=== PATIENT | female | born 1955 | race Caucasian/White ===

== ENCOUNTER 2017-01-01 09:27 | Inpatient (IN) | payer OTHER ==
[2017-01-01 10:03] VITALS: BMI 33.5
--- NOTE | 2017-01-01 11:48 | HP ---
CIWA Score - CIWA Score Nausea/Vomitin Muscle Tremors: 2 Anxiety: 4-Mod. Anxious/Guarded Agitation: 3 Paroxysmal Sweats: 3 Orientation: 0-Oriented Tacttile Disturbances: 1-Very Mild Itch/Numbness Auditory Disturbances: 2-Mild Harshness/Frighten Visual Disturbances: 2-Mild Sensitivity Headache: 0-None Present CIWA-Ar Total Score: 20 Admission ROS BHS - HPI Chief Complaint: "I want to get sober forever." Pt. is here to Detox from Alcohol. Allergies/Adverse Reactions: Allergies Allergy/AdvReac Type Severity Reaction Status Date / Time No Known Allergies Allergy Verified 01/01/17 10:28 History of Present Illness: Pt. is here to Detox from Alcohol. This is pt.'s first Detox admission at [facility]. Pt. had previous Detox admission at [facility] in 11/2016. Longest period of sobriety in past: 28 years (age 31 - age 59). Exam Limitations: No Limitations - Ebola screening Have you traveled outside of the country in the last 21 days: No Have you had contact with anyone from an Ebola affected area: No Have you been sick,other than usual withdrawal symptoms: No Do you have a fever: No - Review of Systems Constitutional: Chills, Diaphoresis, Fever, Malaise, Night Sweats, Changes in sleep EENT: reports: Blurred Vision, Tinnitus (Occasional.), Nose Congestion, Sinus Pressure Respiratory: reports: Cough, Shortness of Breath (Only when feeling very anxious.) Cardiac: reports: Palpitations GI: reports: Constipated, Nausea, Indigestion (Heartburn.) : reports: No Symptoms Reported Musculoskeletal: reports: Back Pain, Joint Pain, Neck Pain, Joint Stiffness Integumentary: reports: Sweating Neuro: reports: Headache, Numbness (Fingertips of Bilateral Hands.), Seizure (1 - approx. years ago (due to Valium withdrawal).), Tingling (Fingertips of Bilateral Hands.), Tremors Endocrine: reports: No Symptoms Reported Hematology: reports: Anemia (Uncertain about type. No meds.), Easy Bruising Psychiatric: reports: Judgement Intact, Mood/Affect Appropiate, Orientated x3, Anxious, Depressed (Anxiety.) Other Systems: Reviewed and Negative Patient History - Patient Medical History Hx Anemia: Yes (Uncertain about type. No meds.) Hx Asthma: No Hx Chronic Obstructive Pulmonary Disease (COPD): No Hx Cancer: No Hx Cardiac Disorders: No Hx Congestive Heart Failure: No Hx Hypertension: No Hx Hypercholesterolemia: No Hx Pacemaker: No HX Cerebrovascular Accident: No Hx Seizures: Yes (1 - Approx. 6 yrs. ago (due to withdrawal from Valium).) Hx Dementia: No Hx Diabetes: No Hx Gastrointestinal Disorders: Yes (Duodenal Ulcer as a teenager - Resolved.) Hx Liver Disease: Yes (Cirrhosis.) Hx Genitourinary Disorders: No Hx Sexually Transmitted Disorders: No Hx Renal Disease (ESRD): No Hx Thyroid Disease: Yes (Hypothyroidism.) Hx Human Immunodeficiency Virus (HIV): No (NEGATIVE HISTORY.) Hx Hepatitis C: No (UNCERTAIN IF SHE HAS IT; DECLINES TESTING THIS VIST.) Hx Depression: Yes (and Anxiety. On meds.) Hx Suicide Attempt: No (PATIENT DENIES CURRENT SI / HI.) Hx Bipolar Disorder: No Hx Schizophrenia: No Other Medical History: Gallstones - diagnosed in 11/2016. - Patient Surgical History Past Surgical History: No Hx Neurologic Surgery: No Hx Cataract Extraction: No Hx Cardiac Surgery: No Hx Lung Surgery: No Hx Breast Surgery: No Hx Breast Biopsy: No Hx Abdominal Surgery: No Hx Appendectomy: No Hx Cholecystectomy: No Hx Genitourinary Surgery: No Hx Section: No Hx Orthopedic Surgery: No Hx Hysterectomy: No Anesthesia Reaction: No - PPD History Previous Implant?: No Documented Results: Negative w/o proof Implanted On Prior R Admission?: No PPD to be Administered?: Yes - Reproductive History Patient is a Female of Child Bearing Age (11 -55 yrs old): No LMP comment: Stopped in late 40's. Patient : No - Smoking Cessation Smoking history: Current some day smoker Have you smoked in the past 12 months: Yes Aproximately how many cigarettes per day: 2 Cigars Per Day: 0 Hx Chewing Tobacco Use: No Initiated information on smoking cessation: Yes 'Breaking Loose' booklet given: 01/01/17 (GIVEN ON UNIT.) - Substance & Tx. History Hx Alcohol Use: Yes Hx Substance Use: Yes Substance Use Type: Alcohol Hx Substance Use Treatment: Yes ([address] [facility].) - Substances Abused Alcohol Route: Oral Frequency: Daily Amount used: vodka(1pint) Age of first use: 15 Date of Last Use: 01/01/17 Family Disease History - Family Disease History Family Disease History: Diabetes: Father, Mother, Brother Admission Physical Exam [facility] - Vital Signs Vital Signs: Vital Signs - 24 hr 01/01/17 09:59 Temperature 97.2 F L Pulse Rate 97 H Respiratory 20 Rate Blood Pressure 135/85 - Physical General Appearance: Yes: Nourished, Appropriately Dressed, Mild Distress, Tremorous, Irritable, Sweating, Anxious HEENTM: Yes: Hearing grossly Normal, Normocephalic, Normal Voice, JAKUB, Pharynx Normal Respiratory: Yes: Chest Non-Tender, Lungs Clear, No Respiratory Distress Neck: Yes: No masses,lesions,Nodules, Trachea in good position, Thyroid tenderness Breast: Yes: Breast Exam Deferred Cardiology: Yes: Regular Rhythm, Regular Rate, S1, S2 Abdominal: Yes: Normal Bowel Sounds, Non Tender, Soft, Protuberent Genitourinary: Yes: Within Normal Limits Back: Yes: Decreased Range of Motion Musculoskeletal: Yes: Gait Steady, Back pain, Joint Stiffness Extremities: Yes: Tremors Neurological: Yes: Fully Oriented, Alert, Normal Mood/Affect, Normal Response Integumentary: Yes: Normal Color, Warm Lymphatic: Yes: Within Normal Limits - Diagnostic (1) Alcohol dependence with uncomplicated withdrawal Current Visit: Yes Status: Acute (2) Nicotine dependence Current Visit: Yes Status: Chronic Qualifiers: Nicotine product type: cigarettes Substance use status: uncomplicated Qualified Code(s): F17.210 - Nicotine dependence, cigarettes, uncomplicated (3) Hypothyroidism Current Visit: Yes Status: Chronic Qualifiers: Hypothyroidism type: unspecified Qualified Code(s): E03.9 - Hypothyroidism, unspecified (4) Liver cirrhosis Current Visit: Yes Status: Chronic Qualifiers: Hepatic cirrhosis type: unspecified hepatic cirrhosis Ascites presence : without ascites Qualified Code(s): K74.60 - Unspecified cirrhosis of liver (5) History of seizure Current Visit: Yes Status: Chronic (6) Gallstones Current Visit: Yes Status: Chronic (7) History of depression Current Visit: Yes Status: Chronic (8) Anxiety Current Visit: Yes Status: Chronic Cleared for Admission [facility] - Detox or Rehab [facility] Level of Care: Medically Managed Detox Regimen/Protocol: Librium [facility] Breath Alcohol Content Breath Alcohol Content: 0 Urine Pregancy Test - Result Urine Test Results: Negative- NO Line Present Urine Drug Screen - Results Drug Screen Negative: No Urine Drug Screen Results: BZO-Benzodiazepines
[2017-01-01] MEDS ORDERED: chlordiazePOXIDE HCL 25 MG CAPSULE PO ONE (13:00)
[2017-01-01] MEDS ORDERED: MAG HYDROX/AL HYDROX/SIMETH 30 ML UNIT-DOSE CUP PO PRN (13:00)
[2017-01-01] MEDS ORDERED: LOPERAMIDE HCL 2 MG CAPSULE PO PRN (13:00)
[2017-01-01] MEDS ORDERED: guaiFENesin/D-METHORPHAN HB 10 ML UNIT-DOSE CUPS PO PRN (13:00)
[2017-01-01] MEDS ORDERED: MAGNESIUM CITRATE 300 ML BOTTLE PO PRN (13:00)
[2017-01-01] MEDS ORDERED: P-EPHED 60MG/TRIPROLIDI 2.5MG TABLET PO PRN (13:00)
[2017-01-01] MEDS ORDERED: MAGNESIUM HYDROX 2400MG/30ML ORAL SUSPENSION 30 ML CUP PO PRN (13:00)
[2017-01-01] MEDS ORDERED: MENTHOL/PHENOL 1 EACH UD MM PRN (13:00)
[2017-01-01] MEDS ORDERED: LEVOTHYROXINE NA 125 MCG TABLET (FP) PO SCH ×3 (13:15→14:35)
[2017-01-01] MEDS: CYCLOBENZAPRINE HCL 10 MG TABLET (FP) PO PRN ×2 (14:12→22:17)
[2017-01-01] MEDS ORDERED: LEVOTHYROXINE NA 25 MCG TABLET (FP) PO SCH (14:32)
[2017-01-01] MEDS: NICOTINE 14 MG/24 HOURS TOPICAL PATCH TD SCH (14:45)
[2017-01-01] MEDS: chlordiazePOXIDE HCL 25 MG CAPSULE PO SCH ×2 (17:31→22:17)
[2017-01-01 17:47] LABS: URINE APPEARANCE CLEAR; URINE BILIRUBIN NEGATIVE (NEGATIVE); URINE BLOOD NEGATIVE (NEGATIVE); URINE COLOR YELLOW; URINE GLUCOSE (UA) NEGATIVE (NEGATIVE); URINE KETONE NEGATIVE (NEGATIVE); URINE LEUK ESTERASE NEGATIVE (NEGATIVE); URINE NITRITE NEGATIVE (NEGATIVE); URINE PROTEIN NEGATIVE (NEGATIVE); URINE UROBILINOGEN 4.0 E.U/dl E.U./dl (0.2-1.0)
[2017-01-01] MEDS: ACETAMINOPHEN 325 MG TABLET (FP) PO PRN (20:35)
[2017-01-01] MEDS: THIAMINE HCL 100 MG TABLET (FP) PO SCH (22:16)
[2017-01-01] MEDS: diphenhydrAMINE HCL 50 MG CAPSULE PO PRN (22:17)
[2017-01-02] MEDS: diphenhydrAMINE HCL 50 MG CAPSULE PO PRN (00:56)
[2017-01-02] MEDS: ARTIFICIAL TEARS (POLYVINYL ALCOHOL 1.4%) OPTH DROPS OU PRN ×2 (05:47→22:25)
[2017-01-02] MEDS: chlordiazePOXIDE HCL 25 MG CAPSULE PO SCH ×4 (05:49→22:25)
[2017-01-02] MEDS: ACETAMINOPHEN 325 MG TABLET (FP) PO PRN ×2 (05:52→13:44)
[2017-01-02 10:06] LABS: MCHC 29.4 g/dl (32.0-36.0); MEAN CELL VOLUME 74.6 fl (80-96); MEAN PLT VOLUME 8.4 fl (7.5-11.1); PLATELET COUNT 153 K/MM3 (134-434); RDW 18.1 % (11.6-15.6)
[2017-01-02 10:15] LABS: ALBUMIN 3.1 g/dl (3.4-5.0); SGOT/AST 159 U/L (15-37)
[2017-01-02 10:23] LABS: INR 1.03 (0.82-1.09); PROTHROMBIN TIME (PATIENT) 11.3 SEC (9.98-11.88)
--- NOTE | 2017-01-02 10:30 | PN ---
S CIWA - CIWA Score Nausea/Vomitin-No Nausea/No Vomiting Muscle Tremors: 4-Moderate,w/Arms Extend Anxiety: 3 Agitation: 4-Moderately Restless Paroxysmal Sweats: 3 Orientation: 0-Oriented Tacttile Disturbances: 0-None Auditory Disturbances: 0-None Visual Disturbances: 0-None Headache: 0-None Present CIWA-Ar Total Score: 14 BHS Progress Note (SOAP) Subjective: sweats shakes interrupted sleep agitation Objective: 01/02/17 10:30 Vital Signs Temperature 97.5 F L 01/02/17 10:00 Pulse Rate 97 H 01/02/17 10:00 Respiratory Rate 20 01/02/17 10:00 Blood Pressure 135/86 01/02/17 10:00 O2 Sat by Pulse Oximetry (%) Laboratory Tests 01/01/17 01/02/17 01/02/17 17:24 07:00 07:00 WBC 7.0 RBC 3.65 Hgb 8.0 L Hct 27.2 L MCV 74.6 L MCHC 29.4 L RDW 18.1 H Plt Count 153 MPV 8.4 Sodium 138 Potassium 3.8 Chloride 100 AST 159 H Albumin 3.1 L Urine Color Yellow Urine Appearance Clear Urine pH 6.0 Ur Specific [place] 1.015 Urine Protein Negative Urine Glucose (UA) Negative Urine Ketones Negative Urine Blood Negative Urine Nitrite Negative Urine Bilirubin Negative Urine Urobilinogen 4.0 e.u/dl H Ur Leukocyte Esterase Negative rest of labs pending awake/alert ambulating no acute distress Assessment: 01/02/17 10:30 withdrawal sx Plan: continue detox increase fluids labs pending
[2017-01-02 10:31] LABS: ALK PHOS 95 U/L (45-117); ANION GAP 10 (8-16); BILIRUBIN,TOTAL 0.7 mg/dL (0.2-1.0); CALCIUM 8.3 mg/dL (8.5-10.1); CO2 28 mmol/L (21-32); CREATININE 0.7 mg/dL (0.55-1.02); GLUCOSE,RANDOM 141 mg/dL (74-106); SGPT/ALT 89 U/L (12-78); T3 UPTAKE 29.7 % (30-39); TOT PROT 7.4 g/dl (6.4-8.2)
[2017-01-02] MEDS: ESCITALOPRAM OXALATE 10 MG TABLET (FP) PO SCH (10:36)
[2017-01-02] MEDS: PRENATAL VITAMINS W/ FOLIC ACID TABLET (FP) PO SCH (10:36)
[2017-01-02] MEDS: PANTOPRAZOLE 20 MG TABLET (FP) PO SCH (10:36)
[2017-01-02] MEDS: NICOTINE 14 MG/24 HOURS TOPICAL PATCH TD SCH (10:37)
[2017-01-02] MEDS: CYCLOBENZAPRINE HCL 10 MG TABLET (FP) PO PRN ×2 (10:59→22:26)
--- NOTE | 2017-01-02 11:51 | CONSULT ---
[facility] Psychiatric Consult - Data Date of interview: 01/02/17 Admission source: [facility] Identifying data: This is 61 years old chronic alcoholic female with no psychiatrioc hoispitalization history intoxicated with: Alcohol, Nicotine Substance Abuse History: - Smoking Cessation. Smoking history: Current some day smoker. Have you smoked in the past 12 months: Yes. Aproximately how many cigarettes per day: 2. Cigars Per Day: 0. Hx Chewing Tobacco Use: No. Initiated information on smoking cessation: Yes. 'Breaking Loose' booklet given : 01/01/17 (GIVEN ON UNIT.). - Substance & Tx. History. Hx Alcohol Use: Yes. Hx Substance Use: Yes. Substance Use Type: Alcohol. Hx Substance Use Treatment : Yes (1 Previous Detox admission at [facility] - Substances Abused. Alcohol. Route: Oral. Frequency: Daily. Amount used: vodka(1pint) . Age of first use: 15. Date of Last Use: 01/01/17 Medical History: Obesity, Liver Cirrhosis, Gallstones history, Seizure history, Hypothyroiditis, Psychiatric History: Patient reports history of depression and insomnia, reports taking prior to admission: Remeron 15mg po qhs. Lexapro 10mg p[oqd. Ambien 10mg po qhs Physical/Sexual Abuse/Trauma History: Denies Additional Comment: Remeron 15mg po qhs. Lexapro 10mg p[oqd. Ambien 10mg po qhs Mental Status Exam - Mental Status Exam Alert and Oriented to: Person Cognitive Function: Fair Patient Appearance: Unkempt Mood: Anxious Affect: Flat Patient Behavior: Cooperative Speech Pattern: Delayed Voice Loudness: Mildly Soft/Quiet Thought Process: Circumstantial Thought Disorder: Being Controlled Hallucinations: Denies Suicidal Ideation: Denies Homicidal Ideation: Denies Insight/Judgement: Fair Sleep: Difficulty falling asleep Appetite: Weight gain Muscle strength/Tone: Mild Hypotonicity Gait/Station: Shuffling Additional Comments: Remeron 15mg po qhs. Lexapro 10mg p[oqd. Ambien 10mg po qhs Psychiatric Findings - Problem List ([place] 1, 2,3) (1) Alcohol dependence with uncomplicated withdrawal Current Visit: Yes Status: Acute (2) History of depression Current Visit: Yes Status: Chronic (3) History of seizure Current Visit: Yes Status: Chronic (4) Liver cirrhosis Current Visit: Yes Status: Chronic Qualifiers: Hepatic cirrhosis type: unspecified hepatic cirrhosis Ascites presence : without ascites Qualified Code(s): K74.60 - Unspecified cirrhosis of liver (5) Nicotine dependence Current Visit: Yes Status: Chronic Qualifiers: Nicotine product type: cigarettes Substance use status: uncomplicated Qualified Code(s): F17.210 - Nicotine dependence, cigarettes, uncomplicated (6) Drug-induced mood disorder Current Visit: Yes Status: Acute - Initial Treatment Plan Initial Treatment Plan: Remeron 15mg po qhs. Lexapro 10mg p[oqd. Ambien 10mg po qhs
--- NOTE | 2017-01-02 14:12 | EKG ---
Test Reason : Blood Pressure : / mmHG Vent. Rate : 091 BPM Atrial Rate : 091 BPM P-R Int : 126 ms QRS Dur : 082 ms QT Int : 390 ms P-R-T Axes : 059 055 029 degrees QTc Int : 479 ms NORMAL SINUS RHYTHM SEPTAL INFARCT , AGE UNDETERMINED ABNORMAL ECG NO PREVIOUS ECGS AVAILABLE Confirmed by JORGE ANDRE MD ([id number]) on 01/02/2017 2:12:20 PM Referred By: Confirmed By:JORGE ANDRE MD
[2017-01-02] MEDS: chlordiazePOXIDE HCL 25 MG CAPSULE PO PRN (19:36)
[2017-01-02] MEDS: THIAMINE HCL 100 MG TABLET (FP) PO SCH (22:25)
[2017-01-02] MEDS: ZOLPIDEM TARTRATE 10 MG TABLET (PARK CARE ONLY) PO PRN (22:25)
[2017-01-02] MEDS: MIRTAZAPINE 15 MG TABLET (FP) PO SCH (22:25)
[2017-01-03] MEDS: ACETAMINOPHEN 325 MG TABLET (FP) PO PRN (03:32)
[2017-01-03] MEDS: chlordiazePOXIDE HCL 25 MG CAPSULE PO SCH ×2 (05:55→10:33)
[2017-01-03] MEDS: LEVOTHYROXINE 25 MCG, LEVOTHYROXINE 100 MCG PO SCH (06:30)
[2017-01-03] MEDS: PANTOPRAZOLE 20 MG TABLET (FP) PO SCH (10:33)
[2017-01-03] MEDS: PRENATAL VITAMINS W/ FOLIC ACID TABLET (FP) PO SCH (10:33)
[2017-01-03] MEDS: ESCITALOPRAM OXALATE 10 MG TABLET (FP) PO SCH (10:33)
[2017-01-03] MEDS: NICOTINE 14 MG/24 HOURS TOPICAL PATCH TD SCH (10:34)
[2017-01-03] MEDS: CYCLOBENZAPRINE HCL 10 MG TABLET (FP) PO PRN ×2 (10:35→22:09)
--- NOTE | 2017-01-03 10:46 | PN ---
[facility] CIWA - CIWA Score Nausea/Vomitin-No Nausea/No Vomiting Muscle Tremors: 3 Anxiety: 3 Agitation: 3 Paroxysmal Sweats: 3 Orientation: 0-Oriented Tacttile Disturbances: 0-None Auditory Disturbances: 0-None Visual Disturbances: 0-None Headache: 0-None Present CIWA-Ar Total Score: 12 BHS Progress Note (SOAP) Subjective: shakes sweats interrupted sleep agitation Objective: 01/03/17 10:46 Vital Signs Temperature 97.1 F L 01/03/17 09:56 Pulse Rate 103 H 01/03/17 09:56 Respiratory Rate 20 01/03/17 09:56 Blood Pressure 130/81 01/03/17 09:56 O2 Sat by Pulse Oximetry (%) Laboratory Tests 01/01/17 01/02/17 01/02/17 17:24 07:00 07:00 WBC 7.0 RBC 3.65 Hgb 8.0 L Hct 27.2 L MCV 74.6 L MCHC 29.4 L RDW 18.1 H Plt Count 153 MPV 8.4 INR Sodium 138 Potassium 3.8 Chloride 100 Carbon Dioxide 28 Anion Gap 10 BUN 16 Creatinine 0.7 Creat Clearance w eGFR > 60 Random Glucose 141 H Calcium 8.3 L Total Bilirubin 0.7 AST 159 H ALT 89 H Alkaline Phosphatase 95 Total Protein 7.4 Albumin 3.1 L TSH 20.50 H Resin T3 Uptake 29.7 L Urine Color Yellow Urine Appearance Clear Urine pH 6.0 Ur Specific [place] 1.015 Urine Protein Negative Urine Glucose (UA) Negative Urine Ketones Negative Urine Blood Negative Urine Nitrite Negative Urine Bilirubin Negative Urine Urobilinogen 4.0 e.u/dl H Ur Leukocyte Esterase Negative RPR Titer 01/02/17 01/02/17 07:00 07:00 WBC RBC Hgb Hct MCV MCHC RDW Plt Count MPV INR 1.03 Sodium Potassium Chloride Carbon Dioxide Anion Gap BUN Creatinine Creat Clearance w eGFR Random Glucose Calcium Total Bilirubin AST ALT Alkaline Phosphatase Total Protein Albumin TSH Resin T3 Uptake Urine Color Urine Appearance Urine pH Ur Specific [place] Urine Protein Urine Glucose (UA) Urine Ketones Urine Blood Urine Nitrite Urine Bilirubin Urine Urobilinogen Ur Leukocyte Esterase RPR Titer Nonreactive awake/alert ambulating no acute distress Assessment: 01/03/17 10:47 withdrawal sx Plan: continue detox increase fluids continue synthroid repeat labs
[2017-01-03] MEDS: chlordiazePOXIDE HCL 25 MG CAPSULE PO PRN (14:19)
[2017-01-03] MEDS: IBUPROFEN 400 MG TABLET (FP) PO PRN ×2 (15:57→20:59)
[2017-01-03] MEDS: hydrOXYzine PAMOATE 50 MG CAPSULE (FP) PO PRN (15:57)
[2017-01-03] MEDS: chlordiazePOXIDE 5 MG CAPSULE PO SCH ×2 (17:08→22:10)
[2017-01-03] MEDS: ARTIFICIAL TEARS (POLYVINYL ALCOHOL 1.4%) OPTH DROPS OU PRN ×2 (21:01→22:09)
[2017-01-03] MEDS: ZOLPIDEM TARTRATE 10 MG TABLET (PARK CARE ONLY) PO PRN (22:08)
[2017-01-03] MEDS: MIRTAZAPINE 15 MG TABLET (FP) PO SCH (22:10)
[2017-01-03] MEDS: THIAMINE HCL 100 MG TABLET (FP) PO SCH (22:10)
[2017-01-04] MEDS: diphenhydrAMINE HCL 50 MG CAPSULE PO PRN (00:51)
[2017-01-04] MEDS: chlordiazePOXIDE HCL 25 MG CAPSULE PO PRN (00:51)
[2017-01-04] MEDS: chlordiazePOXIDE 5 MG CAPSULE PO SCH ×2 (05:56→10:49)
[2017-01-04] MEDS: CYCLOBENZAPRINE HCL 10 MG TABLET (FP) PO PRN ×3 (06:00→22:35)
[2017-01-04] MEDS: LEVOTHYROXINE 25 MCG, LEVOTHYROXINE 100 MCG PO SCH (06:12)
[2017-01-04 09:59] LABS: BASOPHIL 0.7 % (0-2.0); EOSINOPHIL 7.1 % (0-4.5); MCH 22.6 pg (25.7-33.7); MCHC 29.6 g/dl (32.0-36.0); MEAN CELL VOLUME 76.4 fl (80-96); MEAN PLT VOLUME 9.1 fl (7.5-11.1); NEUTROPHILS 58.3 % (42.8-82.8); RDW 18.9 % (11.6-15.6); WHITE BLOOD COUNT 6.8 K/mm3 (4.0-10.0)
[2017-01-04 10:32] LABS: ALBUMIN 2.8 g/dl (3.4-5.0); ANION GAP 9 (8-16); CO2 27 mmol/L (21-32); GLUCOSE,RANDOM 140 mg/dL (74-106)
[2017-01-04 10:43] LABS: ALK PHOS 92 U/L (45-117); BILIRUBIN,TOTAL 0.3 mg/dL (0.2-1.0); CREATININE 0.6 mg/dL (0.55-1.02); SGOT/AST 124 U/L (15-37); SGPT/ALT 90 U/L (12-78); TOT PROT 6.5 g/dl (6.4-8.2)
[2017-01-04] MEDS: PRENATAL VITAMINS W/ FOLIC ACID TABLET (FP) PO SCH (10:48)
[2017-01-04] MEDS: NICOTINE 14 MG/24 HOURS TOPICAL PATCH TD SCH (10:49)
[2017-01-04] MEDS: PANTOPRAZOLE 20 MG TABLET (FP) PO SCH (10:49)
[2017-01-04] MEDS: ESCITALOPRAM OXALATE 10 MG TABLET (FP) PO SCH (10:49)
--- NOTE | 2017-01-04 11:13 | PN ---
BHS Progress Note (SOAP) Subjective: sweats interrupted sleep body aches Objective: 01/04/17 11:16 Vital Signs Temperature 98.2 F 01/04/17 10:00 Pulse Rate 101 H 01/04/17 10:00 Respiratory Rate 16 01/04/17 10:00 Blood Pressure 132/85 01/04/17 10:00 O2 Sat by Pulse Oximetry (%) Laboratory Tests 01/01/17 01/02/17 01/02/17 17:24 07:00 07:00 WBC 7.0 RBC 3.65 Hgb 8.0 L Hct 27.2 L MCV 74.6 L MCHC 29.4 L RDW 18.1 H Plt Count 153 MPV 8.4 Neutrophils % Lymphocytes % Monocytes % Eosinophils % Basophils % INR Sodium 138 Potassium 3.8 Chloride 100 Carbon Dioxide 28 Anion Gap 10 BUN 16 Creatinine 0.7 Creat Clearance w eGFR > 60 Random Glucose 141 H Calcium 8.3 L Total Bilirubin 0.7 AST 159 H ALT 89 H Alkaline Phosphatase 95 Total Protein 7.4 Albumin 3.1 L TSH 20.50 H Resin T3 Uptake 29.7 L Urine Color Yellow Urine Appearance Clear Urine pH 6.0 Ur Specific [place] 1.015 Urine Protein Negative Urine Glucose (UA) Negative Urine Ketones Negative Urine Blood Negative Urine Nitrite Negative Urine Bilirubin Negative Urine Urobilinogen 4.0 e.u/dl H Ur Leukocyte Esterase Negative RPR Titer 01/02/17 01/02/17 01/04/17 07:00 07:00 07:00 WBC 6.8 RBC 3.22 L Hgb 7.3 L Hct 24.6 L MCV 76.4 L MCHC 29.6 L RDW 18.9 H Plt Count MPV 9.1 Neutrophils % 58.3 Lymphocytes % 23.4 Monocytes % 10.5 H Eosinophils % 7.1 H Basophils % 0.7 INR 1.03 Sodium Potassium Chloride Carbon Dioxide Anion Gap BUN Creatinine Creat Clearance w eGFR Random Glucose Calcium Total Bilirubin AST ALT Alkaline Phosphatase Total Protein Albumin TSH Resin T3 Uptake Urine Color Urine Appearance Urine pH Ur Specific [place] Urine Protein Urine Glucose (UA) Urine Ketones Urine Blood Urine Nitrite Urine Bilirubin Urine Urobilinogen Ur Leukocyte Esterase RPR Titer Nonreactive awake/alert ambulating no acute distress Assessment: 01/04/17 11:21 withdrawal sx Plan: continue detox increase fluids d/c in am
[2017-01-04 11:20] LABS: PLATELET ESTIMATE SLT DECREASED (NORMAL)
[2017-01-04] MEDS ORDERED: cloNIDine HCL 0.1 MG TABLET PO ONE (11:24)
[2017-01-04] MEDS: FERROUS SO4 325 MG TABLET (FP) PO SCH ×2 (11:42→17:31)
[2017-01-04] MEDS: hydrOXYzine PAMOATE 50 MG CAPSULE (FP) PO PRN (13:09)
[2017-01-04] MEDS: IBUPROFEN 400 MG TABLET (FP) PO PRN (17:31)
[2017-01-04] MEDS: chlordiazePOXIDE HCL 10 MG CAPSULE PO SCH ×2 (17:31→22:35)
[2017-01-04] MEDS: ARTIFICIAL TEARS (POLYVINYL ALCOHOL 1.4%) OPTH DROPS OU PRN (18:54)
[2017-01-04] MEDS: ZOLPIDEM TARTRATE 10 MG TABLET (PARK CARE ONLY) PO PRN (22:34)
[2017-01-04] MEDS: MIRTAZAPINE 15 MG TABLET (FP) PO SCH (22:35)
[2017-01-04] MEDS: THIAMINE HCL 100 MG TABLET (FP) PO SCH (22:35)
[2017-01-05] MEDS ORDERED: LEVOTHYROXINE NA 100 MCG TABLET (FP) ONE (04:56)
[2017-01-05] MEDS ORDERED: LEVOTHYROXINE NA 25 MCG TABLET (FP) ONE (04:56)
[2017-01-05] MEDS: chlordiazePOXIDE HCL 10 MG CAPSULE PO SCH ×2 (05:51→10:57)
[2017-01-05] MEDS: CYCLOBENZAPRINE HCL 10 MG TABLET (FP) PO PRN ×2 (05:53→13:59)
[2017-01-05] MEDS: FERROUS SO4 325 MG TABLET (FP) PO SCH ×2 (07:35→10:59)
[2017-01-05] MEDS: LEVOTHYROXINE 25 MCG, LEVOTHYROXINE 100 MCG PO SCH (07:35)
[2017-01-05] MEDS: IBUPROFEN 400 MG TABLET (FP) PO PRN (07:36)
--- NOTE | 2017-01-05 08:28 | DS ---
[facility] Detox Discharge Summary Admission Date: 01/01/17 Discharge Date: 01/05/17 - History Present History: Alcohol Dependence - Physical Exam Results Vital Signs: Vital Signs Temperature 96 F L 01/05/17 06:29 Pulse Rate 94 H 01/05/17 06:29 Respiratory Rate 18 01/05/17 06:29 Blood Pressure 128/86 01/05/17 06:29 O2 Sat by Pulse Oximetry (%) - Treatment Hospital Course: Detox Protocol Followed, Detoxed Safely, Responded well, Discharged Condition Good, Rehab Referral Accepted - Medication Discharge Medications: Ambulatory Orders Escitalopram Oxalate [Lexapro -] 10 mg PO DAILY 01/01/17 Levothyroxine [Synthroid -] 125 mcg PO DAILY 01/01/17 Mirtazapine [Remeron -] 15 mg PO HS 01/01/17 Omeprazole Magnesium [Prilosec] 20 mg PO DAILY 01/01/17 Rivaroxaban [Xarelto -] 20 mg PO DAILY 01/01/17 Trazodone HCl [Desyrel -] 100 mg PO HS 01/01/17 Escitalopram Oxalate [Lexapro -] 10 mg PO DAILY #30 tablet 01/02/17 Escitalopram Oxalate [Lexapro -] 10 mg PO DAILY #30 tablet 01/02/17 Mirtazapine [Remeron -] 15 mg PO HS #30 tablet 01/02/17 Mirtazapine [Remeron -] 15 mg PO HS #30 tablet 01/02/17 Zolpidem Tartrate [Ambien] 10 mg PO HS PRN #14 tablet MDD 10 01/02/17 - Diagnosis (1) Alcohol dependence with uncomplicated withdrawal Current Visit: Yes Status: Chronic (2) Drug-induced mood disorder Current Visit: Yes Status: Chronic (3) Anxiety Current Visit: Yes Status: Chronic (4) Gallstones Current Visit: Yes Status: Chronic (5) History of depression Current Visit: Yes Status: Chronic (6) History of seizure Current Visit: Yes Status: Chronic (7) Hypothyroidism Current Visit: Yes Status: Chronic Qualifiers: Hypothyroidism type: unspecified Qualified Code(s): E03.9 - Hypothyroidism, unspecified (8) Liver cirrhosis Current Visit: Yes Status: Chronic Qualifiers: Hepatic cirrhosis type: unspecified hepatic cirrhosis Ascites presence : without ascites Qualified Code(s): K74.60 - Unspecified cirrhosis of liver (9) Nicotine dependence Current Visit: Yes Status: Chronic Qualifiers: Nicotine product type: cigarettes Substance use status: uncomplicated Qualified Code(s): F17.210 - Nicotine dependence, cigarettes, uncomplicated - AMA Did Patient Leave Against Medical Advice: No
[2017-01-05] MEDS: PRENATAL VITAMINS W/ FOLIC ACID TABLET (FP) PO SCH (10:57)
[2017-01-05] MEDS: PANTOPRAZOLE 20 MG TABLET (FP) PO SCH (10:57)
[2017-01-05] MEDS: ESCITALOPRAM OXALATE 10 MG TABLET (FP) PO SCH (10:57)
[2017-01-05] MEDS: NICOTINE 14 MG/24 HOURS TOPICAL PATCH TD SCH (12:06)
[2017-01-05 14:42] VITALS: BP 135/76; PULSE 97; TEMP 96.8
== END 2017-01-05 14:55 | disposition other institution (70) | DRG 775 ==
LOC: YASAS 09:27 → Y6N 11:41
PROVIDERS: ADMIT Internal Medicine; ATTEND Internal Medicine
PROC: HZ2ZZZZ Detoxification Services for Substance Abuse Treatment (ICD-10-PCS; principal; 2017-01-01)
DX: F10.230 Alcohol dependence with withdrawal, uncomplicated (principal); F17.210 Nicotine dependence, cigarettes, uncomplicated; F41.9 Anxiety disorder, unspecified; F32.9 Major depressive disorder, single episode, unspecified; E03.9 Hypothyroidism, unspecified; D64.9 Anemia, unspecified; K74.60 Unspecified cirrhosis of liver; E66.9 Obesity, unspecified; Z68.33 Body mass index [BMI] 33.0-33.9, adult; Z86.69 Personal history of other diseases of the nervous system and sense organs; Z87.19 Personal history of other diseases of the digestive system
CPT/HCPCS: 36415; 80053; 81003; 84436; 84443; 84479; 85025; 85027; 85610; 86593; 93005; 93010

== ENCOUNTER 2017-01-05 15:00 | Inpatient (IN) | payer OTHER ==
[2017-01-05] MEDS ORDERED: MENTHOL/PHENOL 1 EACH UD MM PRN (16:15)
[2017-01-05] MEDS ORDERED: MAGNESIUM CITRATE 300 ML BOTTLE PO PRN (16:15)
[2017-01-05] MEDS ORDERED: IBUPROFEN 400 MG TABLET (FP) PO PRN (16:15)
[2017-01-05] MEDS ORDERED: MAG HYDROX/AL HYDROX/SIMETH 30 ML UNIT-DOSE CUP PO PRN (16:15)
[2017-01-05] MEDS ORDERED: P-EPHED 60MG/TRIPROLIDI 2.5MG TABLET PO PRN (16:15)
[2017-01-05] MEDS ORDERED: LOPERAMIDE HCL 2 MG CAPSULE PO PRN (16:15)
[2017-01-05] MEDS ORDERED: hydrOXYzine PAMOATE 25 MG CAPSULE (FP) PO PRN (16:15)
--- NOTE | 2017-01-05 16:20 | HP ---
CHANDANA DENISE Rehab Assess/Revision - Admission History Admitted to Rehab from: [facility] [place] Date of Admission to Rehab: 01/05/17 - Vital signs Vital Signs: Vital Signs Period Temp Pulse Resp BP Sys/[place] Pulse Ox Last 24 Hr 98.3 F 84 19 146/81 - Findings Detox History & Physical reviewed: Yes Concur with findings: Yes Comments/Additional Findings: for rehab as protocol
[2017-01-05] MEDS: ACETAMINOPHEN 325 MG TABLET (FP) PO PRN (18:14)
[2017-01-05] MEDS: traZODone HCL 100 MG TABLET (FP) PO SCH (21:34)
[2017-01-05] MEDS: THIAMINE HCL 100 MG TABLET (FP) PO SCH (21:34)
[2017-01-05] MEDS: MIRTAZAPINE 15 MG TABLET (FP) PO SCH (21:34)
[2017-01-06] MEDS: ACETAMINOPHEN 325 MG TABLET (FP) PO PRN ×3 (00:35→17:01)
[2017-01-06] MEDS: diphenhydrAMINE HCL 50 MG CAPSULE PO PRN (00:35)
[2017-01-06] MEDS: CYCLOBENZAPRINE HCL 10 MG TABLET (FP) PO PRN ×3 (00:35→21:58)
--- NOTE | 2017-01-06 06:33 | HP ---
Psychiatrist Admission - Data Vital Signs: Vital Signs - 24 hr 01/05/17 01/06/17 15:52 03:30 Temperature 98.3 F Pulse Rate 84 Respiratory 19 18 Rate Blood Pressure 146/81 Allergies/Adverse Reactions: Allergies Allergy/AdvReac Type Severity Reaction Status Date / Time No Known Allergies Allergy Verified 01/01/17 10:28
--- NOTE | 2017-01-06 06:38 | HP ---
Psychiatrist Admission - Data Date of interview: 01/06/17 Admission source: 6N Identifying data: This the first [facility] admission for this 61 years old female, unemployed on social security. domiciled Medical History: Significant for Anemia, GERD, Cirhosis of the liver, Hypothyroidism, Gallstones Sedative-related seizure, duodenal ulcer and orthosurgery for fracture of left hip in January 2016. Smokes 2 cigarettes daily Psychiatric History: Reports that she was diagnosed with MDD more than 10 years ago and prescribed Valium and other medications she cannot recall their name. She said at that time she broke up with an ex boyfriend , had 2 family members that and therefore could not function. Reports that she continued to see the same psychiatrist over the years till she retired more than 6 months ago. Now she has her medications prescribed by her primary care physician. She is on Lexapro 10 mg po daily, Remeron 15 mg po HS, Trazadone 100 mg po HS and Ambien 10 mg po HS. Denies history of previous psychiatric hospitalization or suicidal attempt. At present, reports feeling depressed and sleept poorly last night. She requests increase in Remeron dosage since she cannot be prescribed Ambien. Physical/Sexual Abuse/Trauma History: Denies history of emotional, physical or sexual as well as DV relationship Additional Comment: No criminal history Vital Signs: Vital Signs - 24 hr 01/05/17 01/06/17 15:52 03:30 Temperature 98.3 F Pulse Rate 84 Respiratory 19 18 Rate Blood Pressure 146/81 Allergies/Adverse Reactions: Allergies Allergy/AdvReac Type Severity Reaction Status Date / Time No Known Allergies Allergy Verified 01/01/17 10:28 Date of last physical exam: 01/01/17 Concur with the findings of this exam: Yes - Substance Abuse/Tx History Hx Alcohol Use: Yes Hx Substance Use: No Substance Use Type: Alcohol (Started drinking alcohol at age 15, consumes one pint daily. Last drink on 01/01/17) Hx Substance Use Treatment: Yes ( 3 previous inpt detox @ [facility] & one rehab at [facility]) - Admission Criteria Previous failed treatment: No Poor recovery environment: Yes Comorbidities: Yes Lacks judgement: Yes Mental Status Exam - Mental Status Exam Alert and Oriented to: Time, Place, Person Cognitive Function: Fair Patient Appearance: Well Groomed Mood: Depressed Affect: Constricted Patient Behavior: Cooperative Speech Pattern: Clear Voice Loudness: Normal Thought Process: Intact, Goal Oriented Hallucinations: None Suicidal Ideation: Denies Homicidal Ideation: Denies Insight/Judgement: Fair Sleep: Poorly Appetite: Good Muscle strength/Tone: Normal Gait/Station: Normal Psychiatric Findings - Problem List ([place] 1, 2,3) (1) Alcohol dependence with uncomplicated withdrawal Current Visit: No Status: Chronic (2) Nicotine dependence Current Visit: No Status: Chronic Qualifiers: Nicotine product type: cigarettes Substance use status: uncomplicated Qualified Code(s): F17.210 - Nicotine dependence, cigarettes, uncomplicated (3) MDD (major depressive disorder), recurrent episode Current Visit: Yes Status: Acute (4) Drug-induced mood disorder Current Visit: No Status: Chronic (5) Gallstones Current Visit: No Status: Chronic (6) Anemia Current Visit: Yes Status: Acute (7) GERD (gastroesophageal reflux disease) Current Visit: Yes Status: Acute (8) Cirrhosis of liver Current Visit: No Status: Chronic Qualifiers: Hepatic cirrhosis type: unspecified hepatic cirrhosis Ascites presence : without ascites Qualified Code(s): K74.60 - Unspecified cirrhosis of liver (9) History of seizure Current Visit: No Status: Chronic (10) Hypothyroidism Current Visit: No Status: Chronic Qualifiers: Hypothyroidism type: unspecified Qualified Code(s): E03.9 - Hypothyroidism, unspecified - Initial Treatment Plan Initial Treatment Plan: 1) Continue Lexapro 10 mg po daily, Remeron 30 mg po HS and Trazadone 100 mg po HS. 2) Monitor progress
[2017-01-06] MEDS: LEVOTHYROXINE 100 MCG, LEVOTHYROXINE 25 MCG PO SCH (07:22)
[2017-01-06] MEDS: RIVAROXABAN 20 MG TABLET PO SCH (09:43)
[2017-01-06] MEDS: ESCITALOPRAM OXALATE 10 MG TABLET (FP) PO SCH (09:44)
[2017-01-06] MEDS: NICOTINE 14 MG/24 HOURS TOPICAL PATCH TD SCH (09:45)
[2017-01-06] MEDS ORDERED: LEVOTHYROXINE NA 125 MCG TABLET (FP) PO SCH (10:00)
[2017-01-06] MEDS ORDERED: PRENATAL VITAMINS W/ FOLIC ACID TABLET (FP) PO SCH (10:00)
[2017-01-06] MEDS: THIAMINE HCL 100 MG TABLET (FP) PO SCH (21:08)
[2017-01-06] MEDS: traZODone HCL 100 MG TABLET (FP) PO SCH (21:09)
[2017-01-06] MEDS: MIRTAZAPINE 30 MG TABLET (FP) PO SCH (21:10)
[2017-01-06] MEDS: MIRTAZAPINE 15 MG TABLET (FP) PO SCH (21:11)
[2017-01-07] MEDS: ACETAMINOPHEN 325 MG TABLET (FP) PO PRN ×3 (01:16→22:11)
[2017-01-07] MEDS: diphenhydrAMINE HCL 50 MG CAPSULE PO PRN (01:16)
[2017-01-07] MEDS: LEVOTHYROXINE 100 MCG, LEVOTHYROXINE 25 MCG PO SCH (06:50)
[2017-01-07] MEDS: NICOTINE 14 MG/24 HOURS TOPICAL PATCH TD SCH (10:04)
[2017-01-07] MEDS: RIVAROXABAN 20 MG TABLET PO SCH (10:04)
[2017-01-07] MEDS: ESCITALOPRAM OXALATE 10 MG TABLET (FP) PO SCH (10:04)
[2017-01-07] MEDS: CYCLOBENZAPRINE HCL 10 MG TABLET (FP) PO PRN ×2 (10:06→21:49)
[2017-01-07] MEDS: MAGNESIUM HYDROX 2400MG/30ML ORAL SUSPENSION 30 ML CUP PO PRN (13:49)
[2017-01-07] MEDS: ARTIFICIAL TEARS (POLYVINYL ALCOHOL 1.4%) OPTH DROPS OU SCH ×3 (14:06→21:45)
[2017-01-07] MEDS ORDERED: BISACODYL 5 MG TABLET.DR (FP) PO ONE (14:30)
[2017-01-07] MEDS: traZODone HCL 100 MG TABLET (FP) PO SCH (21:46)
[2017-01-07] MEDS: MIRTAZAPINE 30 MG TABLET (FP) PO SCH (21:46)
[2017-01-07] MEDS: MIRTAZAPINE 15 MG TABLET (FP) PO SCH (21:46)
[2017-01-07] MEDS: THIAMINE HCL 100 MG TABLET (FP) PO SCH (21:46)
[2017-01-08] MEDS: CYCLOBENZAPRINE HCL 10 MG TABLET (FP) PO PRN ×3 (06:48→21:59)
[2017-01-08] MEDS: LEVOTHYROXINE 100 MCG, LEVOTHYROXINE 25 MCG PO SCH (06:48)
[2017-01-08] MEDS: ACETAMINOPHEN 325 MG TABLET (FP) PO PRN ×3 (06:49→22:11)
[2017-01-08] MEDS: NICOTINE 14 MG/24 HOURS TOPICAL PATCH TD SCH (09:56)
[2017-01-08] MEDS: RIVAROXABAN 20 MG TABLET PO SCH (09:56)
[2017-01-08] MEDS: BISACODYL 5 MG TABLET.DR (FP) PO SCH (09:56)
[2017-01-08] MEDS: ARTIFICIAL TEARS (POLYVINYL ALCOHOL 1.4%) OPTH DROPS OU SCH ×4 (09:56→21:25)
[2017-01-08] MEDS: ESCITALOPRAM OXALATE 10 MG TABLET (FP) PO SCH (09:56)
[2017-01-08] MEDS: MIRTAZAPINE 30 MG TABLET (FP) PO SCH (21:24)
[2017-01-08] MEDS: MIRTAZAPINE 15 MG TABLET (FP) PO SCH (21:24)
[2017-01-08] MEDS: THIAMINE HCL 100 MG TABLET (FP) PO SCH (21:24)
[2017-01-08] MEDS: traZODone HCL 100 MG TABLET (FP) PO SCH (21:24)
[2017-01-08] MEDS: guaiFENesin/D-METHORPHAN HB 10 ML UNIT-DOSE CUPS PO PRN (21:26)
[2017-01-09] MEDS: LEVOTHYROXINE 100 MCG, LEVOTHYROXINE 25 MCG PO SCH (05:59)
[2017-01-09] MEDS: CYCLOBENZAPRINE HCL 10 MG TABLET (FP) PO PRN ×3 (06:01→21:30)
[2017-01-09] MEDS: ACETAMINOPHEN 325 MG TABLET (FP) PO PRN (08:52)
[2017-01-09] MEDS: ESCITALOPRAM OXALATE 10 MG TABLET (FP) PO SCH (10:23)
[2017-01-09] MEDS: RIVAROXABAN 20 MG TABLET PO SCH (10:23)
[2017-01-09] MEDS: BISACODYL 5 MG TABLET.DR (FP) PO SCH (10:23)
[2017-01-09] MEDS: NICOTINE 14 MG/24 HOURS TOPICAL PATCH TD SCH (10:24)
[2017-01-09] MEDS: ARTIFICIAL TEARS (POLYVINYL ALCOHOL 1.4%) OPTH DROPS OU SCH ×4 (10:36→22:01)
[2017-01-09] MEDS: guaiFENesin/D-METHORPHAN HB 10 ML UNIT-DOSE CUPS PO PRN (13:35)
[2017-01-09] MEDS: LIDOCAINE 5% TOPICAL PATCH TP SCH (14:51)
[2017-01-09] MEDS: THIAMINE HCL 100 MG TABLET (FP) PO SCH (21:29)
[2017-01-09] MEDS: MIRTAZAPINE 30 MG TABLET (FP) PO SCH (21:29)
[2017-01-09] MEDS: MIRTAZAPINE 15 MG TABLET (FP) PO SCH (21:29)
[2017-01-09] MEDS: traZODone HCL 100 MG TABLET (FP) PO SCH (21:29)
[2017-01-09] MEDS: LIDOCAINE PATCH REMOVAL MC SCH (22:02)
[2017-01-10] MEDS: LEVOTHYROXINE 100 MCG, LEVOTHYROXINE 25 MCG PO SCH (06:21)
[2017-01-10] MEDS: CYCLOBENZAPRINE HCL 10 MG TABLET (FP) PO PRN ×3 (06:22→22:18)
[2017-01-10] MEDS: BISACODYL 5 MG TABLET.DR (FP) PO SCH (09:41)
[2017-01-10] MEDS: ARTIFICIAL TEARS (POLYVINYL ALCOHOL 1.4%) OPTH DROPS OU SCH ×4 (09:41→21:39)
[2017-01-10] MEDS: ESCITALOPRAM OXALATE 10 MG TABLET (FP) PO SCH (09:41)
[2017-01-10] MEDS: RIVAROXABAN 20 MG TABLET PO SCH (09:41)
[2017-01-10] MEDS: guaiFENesin/D-METHORPHAN HB 10 ML UNIT-DOSE CUPS PO PRN ×2 (09:42→21:39)
[2017-01-10] MEDS: NICOTINE 14 MG/24 HOURS TOPICAL PATCH TD SCH (09:43)
[2017-01-10] MEDS: LIDOCAINE 5% TOPICAL PATCH TP SCH (10:08)
[2017-01-10] MEDS: THIAMINE HCL 100 MG TABLET (FP) PO SCH (21:23)
[2017-01-10] MEDS: MIRTAZAPINE 30 MG TABLET (FP) PO SCH (21:23)
[2017-01-10] MEDS: diphenhydrAMINE HCL 50 MG CAPSULE PO PRN (21:23)
[2017-01-10] MEDS: MIRTAZAPINE 15 MG TABLET (FP) PO SCH (21:23)
[2017-01-10] MEDS: traZODone HCL 100 MG TABLET (FP) PO SCH (21:23)
[2017-01-10] MEDS: ACETAMINOPHEN 325 MG TABLET (FP) PO PRN (21:24)
[2017-01-10] MEDS: LIDOCAINE PATCH REMOVAL MC SCH (22:18)
[2017-01-11] MEDS ORDERED: LEVOTHYROXINE NA 100 MCG TABLET (FP) ONE (04:02)
[2017-01-11] MEDS ORDERED: LEVOTHYROXINE NA 25 MCG TABLET (FP) ONE (04:02)
[2017-01-11] MEDS: LEVOTHYROXINE 100 MCG, LEVOTHYROXINE 25 MCG PO SCH (06:11)
[2017-01-11] MEDS: ACETAMINOPHEN 325 MG TABLET (FP) PO PRN (06:42)
[2017-01-11] MEDS: CYCLOBENZAPRINE HCL 10 MG TABLET (FP) PO PRN ×3 (06:42→21:36)
[2017-01-11] MEDS: MAGNESIUM HYDROX 2400MG/30ML ORAL SUSPENSION 30 ML CUP PO PRN (08:39)
[2017-01-11] MEDS: RIVAROXABAN 20 MG TABLET PO SCH (10:20)
[2017-01-11] MEDS: BISACODYL 5 MG TABLET.DR (FP) PO SCH (10:20)
[2017-01-11] MEDS: ESCITALOPRAM OXALATE 10 MG TABLET (FP) PO SCH (10:21)
[2017-01-11] MEDS: NICOTINE 14 MG/24 HOURS TOPICAL PATCH TD SCH (10:21)
[2017-01-11] MEDS: LIDOCAINE 5% TOPICAL PATCH TP SCH (10:23)
[2017-01-11] MEDS: ARTIFICIAL TEARS (POLYVINYL ALCOHOL 1.4%) OPTH DROPS OU SCH ×4 (10:24→21:35)
[2017-01-11] MEDS: THIAMINE HCL 100 MG TABLET (FP) PO SCH (21:36)
[2017-01-11] MEDS: traZODone HCL 100 MG TABLET (FP) PO SCH (21:36)
[2017-01-11] MEDS: MIRTAZAPINE 30 MG TABLET (FP) PO SCH (21:36)
[2017-01-11] MEDS: MIRTAZAPINE 15 MG TABLET (FP) PO SCH (21:36)
[2017-01-11] MEDS: diphenhydrAMINE HCL 50 MG CAPSULE PO PRN (21:36)
[2017-01-11] MEDS: LIDOCAINE PATCH REMOVAL MC SCH (21:37)
[2017-01-12] MEDS ORDERED: LEVOTHYROXINE NA 25 MCG TABLET (FP) ONE (05:30)
[2017-01-12] MEDS ORDERED: LEVOTHYROXINE NA 100 MCG TABLET (FP) ONE (05:30)
[2017-01-12] MEDS: CYCLOBENZAPRINE HCL 10 MG TABLET (FP) PO PRN ×3 (06:11→21:45)
[2017-01-12] MEDS: LEVOTHYROXINE 100 MCG, LEVOTHYROXINE 25 MCG PO SCH (06:11)
[2017-01-12] MEDS: RIVAROXABAN 20 MG TABLET PO SCH (10:13)
[2017-01-12] MEDS: BISACODYL 5 MG TABLET.DR (FP) PO SCH (10:13)
[2017-01-12] MEDS: ARTIFICIAL TEARS (POLYVINYL ALCOHOL 1.4%) OPTH DROPS OU SCH ×5 (10:14→21:43)
[2017-01-12] MEDS: ESCITALOPRAM OXALATE 10 MG TABLET (FP) PO SCH (10:14)
[2017-01-12] MEDS: NICOTINE 14 MG/24 HOURS TOPICAL PATCH TD SCH (10:15)
[2017-01-12] MEDS: LIDOCAINE 5% TOPICAL PATCH TP SCH (10:15)
--- NOTE | 2017-01-12 16:07 | PN ---
CHANDANA Progress Note Note: PATIENT XRAY ADDRESSED,WITH PATIENT ,PATIENT DENIED TRAUMA TO BACK,DID NOTWANT [ ELVIC SONOGRAM TOR/O FIBROID UTERUS, WILL FOLLOW UP WITH PMD AND BACK SPECIALIST AT [facility] UPON DISCHARGEE
[2017-01-12] MEDS: MIRTAZAPINE 30 MG TABLET (FP) PO SCH (21:42)
[2017-01-12] MEDS: MIRTAZAPINE 15 MG TABLET (FP) PO SCH (21:42)
[2017-01-12] MEDS: traZODone HCL 100 MG TABLET (FP) PO SCH (21:42)
[2017-01-12] MEDS: THIAMINE HCL 100 MG TABLET (FP) PO SCH (21:42)
[2017-01-12] MEDS: LIDOCAINE PATCH REMOVAL MC SCH (22:46)
[2017-01-13] MEDS ORDERED: LEVOTHYROXINE NA 100 MCG TABLET (FP) ONE (05:40)
[2017-01-13] MEDS ORDERED: LEVOTHYROXINE NA 25 MCG TABLET (FP) ONE (05:41)
[2017-01-13] MEDS: LEVOTHYROXINE 100 MCG, LEVOTHYROXINE 25 MCG PO SCH (06:17)
[2017-01-13] MEDS: ACETAMINOPHEN 325 MG TABLET (FP) PO PRN ×2 (06:18→23:11)
[2017-01-13] MEDS: CYCLOBENZAPRINE HCL 10 MG TABLET (FP) PO PRN ×3 (06:18→21:16)
[2017-01-13] MEDS: ESCITALOPRAM OXALATE 10 MG TABLET (FP) PO SCH (09:52)
[2017-01-13] MEDS: BISACODYL 5 MG TABLET.DR (FP) PO SCH (09:52)
[2017-01-13] MEDS: NICOTINE 14 MG/24 HOURS TOPICAL PATCH TD SCH (09:52)
[2017-01-13] MEDS: ARTIFICIAL TEARS (POLYVINYL ALCOHOL 1.4%) OPTH DROPS OU SCH ×4 (09:52→21:15)
[2017-01-13] MEDS: LIDOCAINE 5% TOPICAL PATCH TP SCH (09:52)
[2017-01-13] MEDS: RIVAROXABAN 20 MG TABLET PO SCH (09:52)
[2017-01-13] MEDS: MIRTAZAPINE 30 MG TABLET (FP) PO SCH (21:16)
[2017-01-13] MEDS: diphenhydrAMINE HCL 50 MG CAPSULE PO PRN (21:16)
[2017-01-13] MEDS: THIAMINE HCL 100 MG TABLET (FP) PO SCH (21:16)
[2017-01-13] MEDS: traZODone HCL 100 MG TABLET (FP) PO SCH (21:16)
[2017-01-13] MEDS: MIRTAZAPINE 15 MG TABLET (FP) PO SCH (21:16)
[2017-01-13] MEDS: guaiFENesin/D-METHORPHAN HB 10 ML UNIT-DOSE CUPS PO PRN (21:17)
[2017-01-13] MEDS: LIDOCAINE PATCH REMOVAL MC SCH (21:17)
[2017-01-14] MEDS ORDERED: LEVOTHYROXINE NA 25 MCG TABLET (FP) ONE (04:27)
[2017-01-14] MEDS ORDERED: LEVOTHYROXINE NA 100 MCG TABLET (FP) ONE (04:27)
[2017-01-14] MEDS: LEVOTHYROXINE 100 MCG, LEVOTHYROXINE 25 MCG PO SCH (06:15)
[2017-01-14] MEDS: CYCLOBENZAPRINE HCL 10 MG TABLET (FP) PO PRN ×3 (06:16→21:12)
[2017-01-14] MEDS: ACETAMINOPHEN 325 MG TABLET (FP) PO PRN ×3 (06:16→21:14)
[2017-01-14] MEDS: ARTIFICIAL TEARS (POLYVINYL ALCOHOL 1.4%) OPTH DROPS OU SCH ×4 (09:57→21:12)
[2017-01-14] MEDS: ESCITALOPRAM OXALATE 10 MG TABLET (FP) PO SCH (09:57)
[2017-01-14] MEDS: BISACODYL 5 MG TABLET.DR (FP) PO SCH (09:58)
[2017-01-14] MEDS: RIVAROXABAN 20 MG TABLET PO SCH (09:58)
[2017-01-14] MEDS: NICOTINE 14 MG/24 HOURS TOPICAL PATCH TD SCH (09:58)
[2017-01-14] MEDS: LIDOCAINE 5% TOPICAL PATCH TP SCH (10:00)
[2017-01-14] MEDS: MIRTAZAPINE 30 MG TABLET (FP) PO SCH (21:12)
[2017-01-14] MEDS: traZODone HCL 100 MG TABLET (FP) PO SCH (21:12)
[2017-01-14] MEDS: THIAMINE HCL 100 MG TABLET (FP) PO SCH (21:12)
[2017-01-14] MEDS: MIRTAZAPINE 15 MG TABLET (FP) PO SCH (21:12)
[2017-01-14] MEDS: diphenhydrAMINE HCL 50 MG CAPSULE PO PRN (21:13)
[2017-01-14] MEDS: guaiFENesin/D-METHORPHAN HB 10 ML UNIT-DOSE CUPS PO PRN (21:14)
[2017-01-14] MEDS: LIDOCAINE PATCH REMOVAL MC SCH (21:15)
[2017-01-15] MEDS ORDERED: LEVOTHYROXINE NA 100 MCG TABLET (FP) ONE (04:46)
[2017-01-15] MEDS ORDERED: LEVOTHYROXINE NA 25 MCG TABLET (FP) ONE (04:46)
[2017-01-15] MEDS: ACETAMINOPHEN 325 MG TABLET (FP) PO PRN ×4 (06:17→21:08)
[2017-01-15] MEDS: CYCLOBENZAPRINE HCL 10 MG TABLET (FP) PO PRN ×2 (06:17→14:24)
[2017-01-15] MEDS: LEVOTHYROXINE 100 MCG, LEVOTHYROXINE 25 MCG PO SCH (06:17)
[2017-01-15] MEDS: ARTIFICIAL TEARS (POLYVINYL ALCOHOL 1.4%) OPTH DROPS OU SCH ×4 (10:13→21:06)
[2017-01-15] MEDS: RIVAROXABAN 20 MG TABLET PO SCH (10:13)
[2017-01-15] MEDS: ESCITALOPRAM OXALATE 10 MG TABLET (FP) PO SCH (10:13)
[2017-01-15] MEDS: BISACODYL 5 MG TABLET.DR (FP) PO SCH (10:13)
[2017-01-15] MEDS: NICOTINE 14 MG/24 HOURS TOPICAL PATCH TD SCH (10:13)
[2017-01-15] MEDS: LIDOCAINE 5% TOPICAL PATCH TP SCH (10:14)
[2017-01-15] MEDS: MIRTAZAPINE 15 MG TABLET (FP) PO SCH (21:06)
[2017-01-15] MEDS: THIAMINE HCL 100 MG TABLET (FP) PO SCH (21:06)
[2017-01-15] MEDS: traZODone HCL 100 MG TABLET (FP) PO SCH (21:06)
[2017-01-15] MEDS: MIRTAZAPINE 30 MG TABLET (FP) PO SCH (21:06)
[2017-01-15] MEDS: MAGNESIUM HYDROX 2400MG/30ML ORAL SUSPENSION 30 ML CUP PO PRN (21:10)
[2017-01-15] MEDS: guaiFENesin/D-METHORPHAN HB 10 ML UNIT-DOSE CUPS PO PRN (21:34)
[2017-01-15] MEDS: LIDOCAINE PATCH REMOVAL MC SCH (23:12)
[2017-01-16] MEDS ORDERED: LEVOTHYROXINE NA 100 MCG TABLET (FP) ONE (04:13)
[2017-01-16] MEDS ORDERED: LEVOTHYROXINE NA 25 MCG TABLET (FP) ONE (04:14)
[2017-01-16] MEDS: CYCLOBENZAPRINE HCL 10 MG TABLET (FP) PO PRN ×2 (06:22→21:12)
[2017-01-16] MEDS: ACETAMINOPHEN 325 MG TABLET (FP) PO PRN ×2 (06:22→21:13)
[2017-01-16] MEDS: LEVOTHYROXINE 100 MCG, LEVOTHYROXINE 25 MCG PO SCH (06:22)
[2017-01-16] MEDS: RIVAROXABAN 20 MG TABLET PO SCH (10:10)
[2017-01-16] MEDS: ESCITALOPRAM OXALATE 10 MG TABLET (FP) PO SCH (10:10)
[2017-01-16] MEDS: ARTIFICIAL TEARS (POLYVINYL ALCOHOL 1.4%) OPTH DROPS OU SCH ×4 (10:10→21:11)
[2017-01-16] MEDS: BISACODYL 5 MG TABLET.DR (FP) PO SCH (10:10)
[2017-01-16] MEDS: LIDOCAINE 5% TOPICAL PATCH TP SCH (10:12)
[2017-01-16] MEDS: NICOTINE 14 MG/24 HOURS TOPICAL PATCH TD SCH (10:13)
[2017-01-16] MEDS: THIAMINE HCL 100 MG TABLET (FP) PO SCH (21:12)
[2017-01-16] MEDS: traZODone HCL 100 MG TABLET (FP) PO SCH (21:12)
[2017-01-16] MEDS: MIRTAZAPINE 30 MG TABLET (FP) PO SCH (21:12)
[2017-01-16] MEDS: MIRTAZAPINE 15 MG TABLET (FP) PO SCH (21:13)
[2017-01-16] MEDS: diphenhydrAMINE HCL 50 MG CAPSULE PO PRN (21:13)
[2017-01-16] MEDS: LIDOCAINE PATCH REMOVAL MC SCH (21:14)
[2017-01-16] MEDS: guaiFENesin/D-METHORPHAN HB 10 ML UNIT-DOSE CUPS PO PRN (22:59)
[2017-01-17] MEDS ORDERED: LEVOTHYROXINE NA 100 MCG TABLET (FP) ONE (03:43)
[2017-01-17] MEDS ORDERED: LEVOTHYROXINE NA 25 MCG TABLET (FP) ONE (03:43)
[2017-01-17] MEDS: ACETAMINOPHEN 325 MG TABLET (FP) PO PRN ×2 (06:24→21:04)
[2017-01-17] MEDS: LEVOTHYROXINE 100 MCG, LEVOTHYROXINE 25 MCG PO SCH (06:24)
[2017-01-17] MEDS: ARTIFICIAL TEARS (POLYVINYL ALCOHOL 1.4%) OPTH DROPS OU SCH ×4 (10:08→21:05)
[2017-01-17] MEDS: NICOTINE 14 MG/24 HOURS TOPICAL PATCH TD SCH (10:09)
[2017-01-17] MEDS: RIVAROXABAN 20 MG TABLET PO SCH (10:09)
[2017-01-17] MEDS: LIDOCAINE 5% TOPICAL PATCH TP SCH (10:09)
[2017-01-17] MEDS: BISACODYL 5 MG TABLET.DR (FP) PO SCH (10:09)
[2017-01-17] MEDS: ESCITALOPRAM OXALATE 10 MG TABLET (FP) PO SCH (10:09)
[2017-01-17] MEDS: traZODone HCL 100 MG TABLET (FP) PO SCH (21:02)
[2017-01-17] MEDS: MIRTAZAPINE 15 MG TABLET (FP) PO SCH (21:02)
[2017-01-17] MEDS: MIRTAZAPINE 30 MG TABLET (FP) PO SCH (21:02)
[2017-01-17] MEDS: CYCLOBENZAPRINE HCL 10 MG TABLET (FP) PO PRN (21:04)
[2017-01-17] MEDS: diphenhydrAMINE HCL 50 MG CAPSULE PO PRN (21:05)
[2017-01-17] MEDS: THIAMINE HCL 100 MG TABLET (FP) PO SCH (21:07)
[2017-01-17] MEDS: guaiFENesin/D-METHORPHAN HB 10 ML UNIT-DOSE CUPS PO PRN (21:53)
[2017-01-17] MEDS: LIDOCAINE PATCH REMOVAL MC SCH (22:55)
[2017-01-18] MEDS ORDERED: LEVOTHYROXINE NA 100 MCG TABLET (FP) ONE (03:47)
[2017-01-18] MEDS ORDERED: LEVOTHYROXINE NA 25 MCG TABLET (FP) ONE (03:48)
[2017-01-18] MEDS: LEVOTHYROXINE 100 MCG, LEVOTHYROXINE 25 MCG PO SCH (06:14)
[2017-01-18] MEDS: ACETAMINOPHEN 325 MG TABLET (FP) PO PRN ×2 (06:15→21:11)
[2017-01-18] MEDS: BISACODYL 5 MG TABLET.DR (FP) PO SCH (09:30)
[2017-01-18] MEDS: ESCITALOPRAM OXALATE 10 MG TABLET (FP) PO SCH (09:31)
[2017-01-18] MEDS: ARTIFICIAL TEARS (POLYVINYL ALCOHOL 1.4%) OPTH DROPS OU SCH ×4 (09:31→21:08)
[2017-01-18] MEDS: LIDOCAINE 5% TOPICAL PATCH TP SCH (09:31)
[2017-01-18] MEDS: NICOTINE 14 MG/24 HOURS TOPICAL PATCH TD SCH (09:31)
[2017-01-18] MEDS: RIVAROXABAN 20 MG TABLET PO SCH (09:31)
[2017-01-18] MEDS: guaiFENesin/D-METHORPHAN HB 10 ML UNIT-DOSE CUPS PO PRN (21:08)
[2017-01-18] MEDS: THIAMINE HCL 100 MG TABLET (FP) PO SCH (21:08)
[2017-01-18] MEDS: MIRTAZAPINE 15 MG TABLET (FP) PO SCH (21:09)
[2017-01-18] MEDS: traZODone HCL 100 MG TABLET (FP) PO SCH (21:09)
[2017-01-18] MEDS: CYCLOBENZAPRINE HCL 10 MG TABLET (FP) PO PRN (21:09)
[2017-01-18] MEDS: MIRTAZAPINE 30 MG TABLET (FP) PO SCH (21:09)
[2017-01-18] MEDS: diphenhydrAMINE HCL 50 MG CAPSULE PO PRN (21:09)
[2017-01-18] MEDS: LIDOCAINE PATCH REMOVAL MC SCH (21:59)
[2017-01-19] MEDS ORDERED: LEVOTHYROXINE NA 25 MCG TABLET (FP) ONE (04:07)
[2017-01-19] MEDS ORDERED: LEVOTHYROXINE NA 100 MCG TABLET (FP) ONE (04:07)
[2017-01-19] MEDS: LEVOTHYROXINE 100 MCG, LEVOTHYROXINE 25 MCG PO SCH (06:13)
[2017-01-19] MEDS: CYCLOBENZAPRINE HCL 10 MG TABLET (FP) PO PRN ×2 (06:15→21:23)
[2017-01-19] MEDS: ACETAMINOPHEN 325 MG TABLET (FP) PO PRN (06:15)
[2017-01-19] MEDS: BISACODYL 5 MG TABLET.DR (FP) PO SCH (09:54)
[2017-01-19] MEDS: ARTIFICIAL TEARS (POLYVINYL ALCOHOL 1.4%) OPTH DROPS OU SCH ×4 (09:56→21:21)
[2017-01-19] MEDS: LIDOCAINE 5% TOPICAL PATCH TP SCH (09:57)
[2017-01-19] MEDS: RIVAROXABAN 20 MG TABLET PO SCH (09:57)
[2017-01-19] MEDS: NICOTINE 14 MG/24 HOURS TOPICAL PATCH TD SCH (09:57)
[2017-01-19] MEDS: ESCITALOPRAM OXALATE 10 MG TABLET (FP) PO SCH (09:57)
[2017-01-19] MEDS ORDERED: hydrOXYzine PAMOATE 50 MG CAPSULE (FP) PO ONE (11:27)
--- NOTE | 2017-01-19 11:27 | PN ---
Psychiatric Progress Note Vital Signs: Vital Signs Period Temp Pulse Resp BP Sys/Downey Pulse Ox Last 24 Hr 97.4 F 95 20 153/89 Date of Session: 01/19/17 Chief Complaint:: Anxiety HPI: Patient addressing Alcohol Dependence comorbid with Nicotine Dependence and Major Depressive Disorder ROS: Anemia, GERD, Cirrhosis of the liver, Hypothyroidism Current Medications: Active Medications Generic Name Dose Route Start Last Admin Trade Name Freq PRN Reason Stop Dose Admin Acetaminophen 650 mg 01/05/17 16:15 01/19/17 06:15 Tylenol - PO 650 mg Q4H PRN Administration FEVER OR PAIN Al Hydroxide/Mg Hydroxide 30 ml 01/05/17 16:15 01/09/17 08:53 Mylanta Oral Suspension - PO 30 ml Q6H PRN Administration DYSPEPSIA Artificial Tears 1 drop 01/07/17 14:00 01/19/17 09:56 Artificial Tears OU 1 drop QID KEVON Administration Bisacodyl 5 mg 01/08/17 10:00 01/19/17 09:54 Dulcolax - PO 5 mg DAILY KEVON Administration Cyclobenzaprine HCl 10 mg 01/06/17 00:06 01/19/17 06:15 Flexeril - PO 10 mg TID PRN Administration MUSCLE SPASMS Diphenhydramine HCl 50 mg 01/05/17 16:15 01/18/17 21:09 Benadryl - PO 50 mg HSMR1 PRN Administration FOR ITCHING Escitalopram Oxalate 10 mg 01/06/17 10:00 01/19/17 09:57 Lexapro - PO 10 mg DAILY KEVON Administration Eucalyptus/Menthol/Phenol/Sorbitol 1 each 01/05/17 16:15 Cepastat Lozenge - MM Q4H PRN SORE THROAT Guaifenesin 10 ml 01/05/17 16:15 01/18/17 21:08 Robitussin Dm - PO 10 ml Q6H PRN Administration COUGH Hydroxyzine Pamoate 25 mg 01/05/17 16:15 01/05/17 20:03 Vistaril - PO 25 mg Q4H PRN Administration AGITATION Hydroxyzine Pamoate 50 mg 01/19/17 11:16 Vistaril - PO 01/19/17 11:17 ONCE ONE Levothyroxine Sodium 100 mcg/ 125 mcg 01/06/17 07:00 01/19/17 06:13 Levothyroxine Sodium 25 mcg PO 125 mcg DAILY@0700 KEVON Administration Lidocaine 1 patch 01/09/17 14:10 01/19/17 09:57 Lidoderm Patch - TP 1 patch DAILY KEVON Administration Loperamide HCl 4 mg 01/05/17 16:15 Imodium - PO Q6H PRN DIARRHEA Magnesium Hydroxide 30 ml 01/05/17 16:15 01/15/17 21:10 Milk Of Magnesia - PO 30 ml DAILY PRN Administration CONSTIPATION Mirtazapine 15 mg 01/05/17 22:00 01/18/17 21:09 Remeron - PO 15 mg HS KEVON Administration Mirtazapine 30 mg 01/06/17 22:00 01/18/17 21:09 Remeron - PO 30 mg HS KEVON Administration Miscellaneous 1 each 01/09/17 22:00 01/18/17 21:59 Lidoderm Patch Removal MC 1 each DAILY@2200 KEVON Administration Nicotine 14 mg 01/06/17 10:00 01/19/17 09:57 Nicoderm Patch - TD Not Given DAILY KEVON Pseudoephedrine/Triprolidine 1 combo 01/05/17 16:15 Actifed - PO TID PRN NASAL CONGESTION Rivaroxaban 20 mg 01/06/17 10:00 01/19/17 09:57 Xarelto - PO 20 mg DAILY KEVON Administration Thiamine HCl 100 mg 01/05/17 22:00 01/18/17 21:08 Vitamin B1 - PO 100 mg HS KEVON Administration Trazodone HCl 100 mg 01/05/17 22:00 01/18/17 21:09 Desyrel - PO 100 mg HS KEVON Administration Medication(s) Change(s): 1) D/C vistaril 25 mg po Q 4hrs prn for anxiety. 2) Start Vistaril 50 mg po stat then 50 mg po Q 4hrs prn for anxiety Current Side Effect: No Lab tests ordered: Yes Lab tests reviewed: Yes Provider note:: Patient reports that she has been feeling very anxious and consequently has been sleeping poorly despite taking Lexapro 10mg/day, Remeron 15mg po HS anbd Trazadone 100 mg po HS. She has Vistaril 25 mg po Q4 Hrs prn for anxiety but did not know she needs to ask for it Total face to face time:: 25 Mental Status Exam - Mental Status Exam Alert and Oriented to: Time, Place, Person Cognitive Function: Fair Patient Appearance: Well Groomed Mood: Anxious (very) Affect: Appropriate Patient Behavior: Cooperative Speech Pattern: Clear Voice Loudness: Normal Thought Process: Intact, Goal Oriented Thought Disorder: Not Present Hallucinations: Denies Suicidal Ideation: Denies Homicidal Ideation: Denies Insight/Judgement: Fair Sleep: Poorly Appetite: Good Muscle strength/Tone: Normal Gait/Station: Normal Psychiatric Treatment Plan - Problem List (1) Alcohol dependence with uncomplicated withdrawal Current Visit: No (2) Nicotine dependence Current Visit: No Qualifiers: Nicotine product type: cigarettes Substance use status: uncomplicated Qualified Code(s): F17.210 - Nicotine dependence, cigarettes, uncomplicated (3) MDD (major depressive disorder), recurrent episode Current Visit: Yes (4) Drug-induced mood disorder Current Visit: No (5) Gallstones Current Visit: No (6) Anemia Current Visit: Yes (7) GERD (gastroesophageal reflux disease) Current Visit: Yes (8) Cirrhosis of liver Current Visit: No Qualifiers: Hepatic cirrhosis type: unspecified hepatic cirrhosis Ascites presence : without ascites Qualified Code(s): K74.60 - Unspecified cirrhosis of liver (9) History of seizure Current Visit: No (10) Hypothyroidism Current Visit: No Qualifiers: Hypothyroidism type: unspecified Qualified Code(s): E03.9 - Hypothyroidism, unspecified Initial treatment plan: 1) Discontinue Vistaril 25 mg po Q 4hrs prn for anxiety. 2) Start Vistaril 50 mg po stat then 50 mg po Q 4hrs prn for anxiety. 3) Monitor progress
[2017-01-19] MEDS: hydrOXYzine PAMOATE 50 MG CAPSULE (FP) PO PRN (18:02)
[2017-01-19] MEDS: MIRTAZAPINE 30 MG TABLET (FP) PO SCH (21:21)
[2017-01-19] MEDS: traZODone HCL 100 MG TABLET (FP) PO SCH (21:21)
[2017-01-19] MEDS: THIAMINE HCL 100 MG TABLET (FP) PO SCH (21:21)
[2017-01-19] MEDS: MIRTAZAPINE 15 MG TABLET (FP) PO SCH (21:21)
[2017-01-19] MEDS: LIDOCAINE PATCH REMOVAL MC SCH (21:24)
[2017-01-19] MEDS: diphenhydrAMINE HCL 50 MG CAPSULE PO PRN (22:57)
[2017-01-20] MEDS: diphenhydrAMINE HCL 50 MG CAPSULE PO PRN (01:40)
[2017-01-20] MEDS ORDERED: LEVOTHYROXINE NA 25 MCG TABLET (FP) ONE (05:29)
[2017-01-20] MEDS ORDERED: LEVOTHYROXINE NA 100 MCG TABLET (FP) ONE (05:29)
[2017-01-20] MEDS: LEVOTHYROXINE 100 MCG, LEVOTHYROXINE 25 MCG PO SCH (06:20)
[2017-01-20] MEDS: ACETAMINOPHEN 325 MG TABLET (FP) PO PRN (06:22)
[2017-01-20] MEDS: CYCLOBENZAPRINE HCL 10 MG TABLET (FP) PO PRN ×2 (06:23→21:16)
[2017-01-20] MEDS: hydrOXYzine PAMOATE 50 MG CAPSULE (FP) PO PRN ×3 (06:23→21:16)
[2017-01-20] MEDS: ARTIFICIAL TEARS (POLYVINYL ALCOHOL 1.4%) OPTH DROPS OU SCH ×4 (10:07→21:16)
[2017-01-20] MEDS: LIDOCAINE 5% TOPICAL PATCH TP SCH (10:08)
[2017-01-20] MEDS: NICOTINE 14 MG/24 HOURS TOPICAL PATCH TD SCH (10:08)
[2017-01-20] MEDS: RIVAROXABAN 20 MG TABLET PO SCH (10:08)
[2017-01-20] MEDS: ESCITALOPRAM OXALATE 10 MG TABLET (FP) PO SCH (10:08)
[2017-01-20] MEDS: BISACODYL 5 MG TABLET.DR (FP) PO SCH (10:08)
[2017-01-20] MEDS: traZODone HCL 100 MG TABLET (FP) PO SCH (21:16)
[2017-01-20] MEDS: THIAMINE HCL 100 MG TABLET (FP) PO SCH (21:16)
[2017-01-20] MEDS: MIRTAZAPINE 30 MG TABLET (FP) PO SCH (21:16)
[2017-01-20] MEDS: MIRTAZAPINE 15 MG TABLET (FP) PO SCH (21:16)
[2017-01-20] MEDS: LIDOCAINE PATCH REMOVAL MC SCH (21:18)
[2017-01-21] MEDS: diphenhydrAMINE HCL 50 MG CAPSULE PO PRN ×2 (00:43→23:19)
[2017-01-21] MEDS ORDERED: LEVOTHYROXINE NA 100 MCG TABLET (FP) ONE (03:22)
[2017-01-21] MEDS ORDERED: LEVOTHYROXINE NA 25 MCG TABLET (FP) ONE (03:22)
[2017-01-21] MEDS: LEVOTHYROXINE 100 MCG, LEVOTHYROXINE 25 MCG PO SCH (06:18)
[2017-01-21] MEDS: ESCITALOPRAM OXALATE 10 MG TABLET (FP) PO SCH (09:53)
[2017-01-21] MEDS: RIVAROXABAN 20 MG TABLET PO SCH (09:53)
[2017-01-21] MEDS: BISACODYL 5 MG TABLET.DR (FP) PO SCH (09:53)
[2017-01-21] MEDS: ARTIFICIAL TEARS (POLYVINYL ALCOHOL 1.4%) OPTH DROPS OU SCH ×4 (09:53→21:23)
[2017-01-21] MEDS: NICOTINE 14 MG/24 HOURS TOPICAL PATCH TD SCH (09:53)
[2017-01-21] MEDS: LIDOCAINE 5% TOPICAL PATCH TP SCH (09:54)
[2017-01-21] MEDS: CYCLOBENZAPRINE HCL 10 MG TABLET (FP) PO PRN (09:55)
[2017-01-21] MEDS: traZODone HCL 100 MG TABLET (FP) PO SCH (21:24)
[2017-01-21] MEDS: THIAMINE HCL 100 MG TABLET (FP) PO SCH (21:24)
[2017-01-21] MEDS: hydrOXYzine PAMOATE 50 MG CAPSULE (FP) PO PRN (21:25)
[2017-01-21] MEDS: LIDOCAINE PATCH REMOVAL MC SCH (21:26)
[2017-01-21] MEDS: MIRTAZAPINE 30 MG TABLET (FP) PO SCH (23:00)
[2017-01-21] MEDS: MIRTAZAPINE 15 MG TABLET (FP) PO SCH (23:00)
[2017-01-22] MEDS ORDERED: LEVOTHYROXINE NA 25 MCG TABLET (FP) ONE (05:16)
[2017-01-22] MEDS ORDERED: LEVOTHYROXINE NA 100 MCG TABLET (FP) ONE (05:16)
[2017-01-22] MEDS: LEVOTHYROXINE 100 MCG, LEVOTHYROXINE 25 MCG PO SCH (06:20)
[2017-01-22] MEDS: hydrOXYzine PAMOATE 50 MG CAPSULE (FP) PO PRN ×2 (06:21→21:17)
[2017-01-22] MEDS: CYCLOBENZAPRINE HCL 10 MG TABLET (FP) PO PRN (06:21)
[2017-01-22] MEDS: ESCITALOPRAM OXALATE 10 MG TABLET (FP) PO SCH (09:53)
[2017-01-22] MEDS: ARTIFICIAL TEARS (POLYVINYL ALCOHOL 1.4%) OPTH DROPS OU SCH ×4 (09:53→21:15)
[2017-01-22] MEDS: NICOTINE 14 MG/24 HOURS TOPICAL PATCH TD SCH (09:54)
[2017-01-22] MEDS: LIDOCAINE 5% TOPICAL PATCH TP SCH (09:54)
[2017-01-22] MEDS: RIVAROXABAN 20 MG TABLET PO SCH (09:54)
[2017-01-22] MEDS: BISACODYL 5 MG TABLET.DR (FP) PO SCH (09:54)
[2017-01-22] MEDS: ACETAMINOPHEN 325 MG TABLET (FP) PO PRN ×2 (09:56→21:18)
[2017-01-22] MEDS: THIAMINE HCL 100 MG TABLET (FP) PO SCH (21:15)
[2017-01-22] MEDS: traZODone HCL 100 MG TABLET (FP) PO SCH (21:15)
[2017-01-22] MEDS: LIDOCAINE PATCH REMOVAL MC SCH (21:19)
[2017-01-22] MEDS: MIRTAZAPINE 30 MG TABLET (FP) PO SCH (22:47)
[2017-01-22] MEDS: MIRTAZAPINE 15 MG TABLET (FP) PO SCH (22:47)
[2017-01-22] MEDS: diphenhydrAMINE HCL 50 MG CAPSULE PO PRN (22:48)
[2017-01-23] MEDS ORDERED: LEVOTHYROXINE NA 25 MCG TABLET (FP) ONE (05:28)
[2017-01-23] MEDS ORDERED: LEVOTHYROXINE NA 100 MCG TABLET (FP) ONE (05:28)
[2017-01-23] MEDS: LEVOTHYROXINE 100 MCG, LEVOTHYROXINE 25 MCG PO SCH (06:22)
[2017-01-23] MEDS: hydrOXYzine PAMOATE 50 MG CAPSULE (FP) PO PRN ×3 (06:23→21:13)
[2017-01-23] MEDS: CYCLOBENZAPRINE HCL 10 MG TABLET (FP) PO PRN ×2 (06:23→21:13)
[2017-01-23] MEDS: ARTIFICIAL TEARS (POLYVINYL ALCOHOL 1.4%) OPTH DROPS OU SCH ×4 (10:17→21:12)
[2017-01-23] MEDS: BISACODYL 5 MG TABLET.DR (FP) PO SCH (10:18)
[2017-01-23] MEDS: RIVAROXABAN 20 MG TABLET PO SCH (10:18)
[2017-01-23] MEDS: ESCITALOPRAM OXALATE 10 MG TABLET (FP) PO SCH (10:18)
[2017-01-23] MEDS: NICOTINE 14 MG/24 HOURS TOPICAL PATCH TD SCH (10:19)
[2017-01-23] MEDS: LIDOCAINE 5% TOPICAL PATCH TP SCH (10:19)
[2017-01-23] MEDS: ACETAMINOPHEN 325 MG TABLET (FP) PO PRN (21:13)
[2017-01-23] MEDS: MIRTAZAPINE 30 MG TABLET (FP) PO SCH (21:13)
[2017-01-23] MEDS: MIRTAZAPINE 15 MG TABLET (FP) PO SCH (21:13)
[2017-01-23] MEDS: LIDOCAINE PATCH REMOVAL MC SCH (21:15)
[2017-01-23] MEDS: THIAMINE HCL 100 MG TABLET (FP) PO SCH (21:15)
[2017-01-23] MEDS: traZODone HCL 100 MG TABLET (FP) PO SCH (21:45)
[2017-01-24] MEDS ORDERED: LEVOTHYROXINE NA 100 MCG TABLET (FP) ONE (05:05)
[2017-01-24] MEDS ORDERED: LEVOTHYROXINE NA 25 MCG TABLET (FP) ONE (05:06)
[2017-01-24] MEDS: ACETAMINOPHEN 325 MG TABLET (FP) PO PRN ×3 (06:10→21:28)
[2017-01-24] MEDS: CYCLOBENZAPRINE HCL 10 MG TABLET (FP) PO PRN ×2 (06:10→13:55)
[2017-01-24] MEDS: LEVOTHYROXINE 100 MCG, LEVOTHYROXINE 25 MCG PO SCH (06:10)
[2017-01-24] MEDS: hydrOXYzine PAMOATE 50 MG CAPSULE (FP) PO PRN ×3 (06:10→21:29)
[2017-01-24] MEDS: ESCITALOPRAM OXALATE 10 MG TABLET (FP) PO SCH (10:03)
[2017-01-24] MEDS: LIDOCAINE 5% TOPICAL PATCH TP SCH (10:04)
[2017-01-24] MEDS: RIVAROXABAN 20 MG TABLET PO SCH (10:04)
[2017-01-24] MEDS: NICOTINE 14 MG/24 HOURS TOPICAL PATCH TD SCH (10:04)
[2017-01-24] MEDS: BISACODYL 5 MG TABLET.DR (FP) PO SCH (10:04)
[2017-01-24] MEDS: ARTIFICIAL TEARS (POLYVINYL ALCOHOL 1.4%) OPTH DROPS OU SCH ×4 (10:05→21:23)
[2017-01-24] MEDS: MIRTAZAPINE 15 MG TABLET (FP) PO SCH (21:23)
[2017-01-24] MEDS: THIAMINE HCL 100 MG TABLET (FP) PO SCH (21:23)
[2017-01-24] MEDS: MIRTAZAPINE 30 MG TABLET (FP) PO SCH (21:23)
[2017-01-24] MEDS: LIDOCAINE PATCH REMOVAL MC SCH (21:25)
[2017-01-24] MEDS: traZODone HCL 100 MG TABLET (FP) PO SCH (21:26)
[2017-01-25] MEDS ORDERED: LEVOTHYROXINE NA 100 MCG TABLET (FP) ONE (04:24)
[2017-01-25] MEDS ORDERED: LEVOTHYROXINE NA 25 MCG TABLET (FP) ONE (04:24)
[2017-01-25] MEDS: LEVOTHYROXINE 100 MCG, LEVOTHYROXINE 25 MCG PO SCH (06:11)
[2017-01-25] MEDS: CYCLOBENZAPRINE HCL 10 MG TABLET (FP) PO PRN (06:11)
[2017-01-25] MEDS: hydrOXYzine PAMOATE 50 MG CAPSULE (FP) PO PRN (06:11)
[2017-01-25] MEDS: ACETAMINOPHEN 325 MG TABLET (FP) PO PRN (06:11)
[2017-01-25 06:36] VITALS: PULSE 102; TEMP 98
[2017-01-25 07:18] VITALS: BP 141/90
[2017-01-25] MEDS: RIVAROXABAN 20 MG TABLET PO SCH (09:16)
[2017-01-25] MEDS: ESCITALOPRAM OXALATE 10 MG TABLET (FP) PO SCH (09:16)
[2017-01-25] MEDS: ARTIFICIAL TEARS (POLYVINYL ALCOHOL 1.4%) OPTH DROPS OU SCH (09:16)
[2017-01-25] MEDS: BISACODYL 5 MG TABLET.DR (FP) PO SCH (09:16)
[2017-01-25] MEDS: LIDOCAINE 5% TOPICAL PATCH TP SCH (09:18)
[2017-01-25] MEDS: NICOTINE 14 MG/24 HOURS TOPICAL PATCH TD SCH (09:18)
--- NOTE | 2017-01-25 09:37 | PN ---
Psychiatric Progress Note Vital Signs: Vital Signs Period Temp Pulse Resp BP Sys/Downey Pulse Ox Last 24 Hr 98 F 102 18-18 141-147/90-97 Date of Session: 01/25/17 Chief Complaint:: Discharge visit HPI: Patient was admitted to [address] on 01/05/17 to address alcohol dependence,nicotine dependence co-morbid with major depressive disorder.Completed detoxification treatment at [address] [place] [address].Full course of rehabilitation at [facility]. ROS: Unremarkable.Patient is ambulatory.No somatic complaints.Cognition is intact. Current Medications: Active Medications Generic Name Dose Route Start Last Admin Trade Name Freq PRN Reason Stop Dose Admin Acetaminophen 650 mg 01/05/17 16:15 01/25/17 06:11 Tylenol - PO 650 mg Q4H PRN Administration FEVER OR PAIN Al Hydroxide/Mg Hydroxide 30 ml 01/05/17 16:15 01/09/17 08:53 Mylanta Oral Suspension - PO 30 ml Q6H PRN Administration DYSPEPSIA Artificial Tears 1 drop 01/07/17 14:00 01/25/17 09:16 Artificial Tears OU 1 drop QID KEVON Administration Bisacodyl 5 mg 01/08/17 10:00 01/25/17 09:16 Dulcolax - PO 5 mg DAILY KEVON Administration Cyclobenzaprine HCl 10 mg 01/06/17 00:06 01/25/17 06:11 Flexeril - PO 10 mg TID PRN Administration MUSCLE SPASMS Diphenhydramine HCl 50 mg 01/05/17 16:15 01/22/17 22:48 Benadryl - PO 50 mg HSMR1 PRN Administration FOR ITCHING Escitalopram Oxalate 10 mg 01/06/17 10:00 01/25/17 09:16 Lexapro - PO 10 mg DAILY KEVON Administration Eucalyptus/Menthol/Phenol/Sorbitol 1 each 01/05/17 16:15 Cepastat Lozenge - MM Q4H PRN SORE THROAT Guaifenesin 10 ml 01/05/17 16:15 01/18/17 21:08 Robitussin Dm - PO 10 ml Q6H PRN Administration COUGH Hydroxyzine Pamoate 50 mg 01/19/17 11:32 01/25/17 06:11 Vistaril - PO 50 mg Q4H PRN Administration ANXIETY Levothyroxine Sodium 100 mcg/ 125 mcg 01/06/17 07:00 01/25/17 06:11 Levothyroxine Sodium 25 mcg PO 125 mcg DAILY@0700 KEVON Administration Lidocaine 1 patch 01/09/17 14:10 01/25/17 09:18 Lidoderm Patch - TP Not Given DAILY KEVON Loperamide HCl 4 mg 01/05/17 16:15 Imodium - PO Q6H PRN DIARRHEA Magnesium Hydroxide 30 ml 01/05/17 16:15 01/15/17 21:10 Milk Of Magnesia - PO 30 ml DAILY PRN Administration CONSTIPATION Mirtazapine 15 mg 01/05/17 22:00 01/24/17 21:23 Remeron - PO 15 mg HS KEVON Administration Mirtazapine 30 mg 01/06/17 22:00 01/24/17 21:23 Remeron - PO 30 mg HS KEVON Administration Miscellaneous 1 each 01/09/17 22:00 01/24/17 21:25 Lidoderm Patch Removal MC Not Given DAILY@2200 KEVON Nicotine 14 mg 01/06/17 10:00 01/25/17 09:18 Nicoderm Patch - TD Not Given DAILY KEVON Pseudoephedrine/Triprolidine 1 combo 01/05/17 16:15 Actifed - PO TID PRN NASAL CONGESTION Rivaroxaban 20 mg 01/06/17 10:00 01/25/17 09:16 Xarelto - PO 20 mg DAILY KEVON Administration Thiamine HCl 100 mg 01/05/17 22:00 01/24/17 21:23 Vitamin B1 - PO 100 mg HS KEVON Administration Trazodone HCl 100 mg 01/05/17 22:00 01/24/17 21:26 Desyrel - PO Not Given HS KEVON Medication(s) Change(s): Medications reviewed.Trazodone is withdrawn (not effective as per patient).Contact made with [facility] # [id number] at : scripts for ambien,lexapro and remeron are already available (sent electronically by Dr Luevano on 01/02/17).Side effects/benefits of each drug are discussed with the patient.Made aware,in particular of risk of parasomnias ( zolpidem),suicidal ideation (lexapro) and hypotension (mirtazapine).Ms Walker reports a history of good tolerability to these medications.Well tolerated during hospital course. Current Side Effect: No Lab tests ordered: No Lab tests reviewed: Yes Provider note:: Patient has completed this program on this date.Ms Walker has met her treatment goals and she will continue to address her issues in outpatient setting at the [facility] ) at [address] [place] [address] (intake appointment scheduled for 08/04/16 @ 10:30 am).Medical issues (anemia,cirrhosis of liver, hypothyroidism,GERD) were addressed.Patient reports that she will contact her regular primary care physician for follow up appointment.She endorses improved insight into the serious consequences of alcohol addiction and feels more motivated for maintenance of sobriety.Ms Walker states that she will keep all aftercare appointments (medical + psychiatric),adhere to her medications schedule/AA meetings and avoid triggers.Patient appears well rested,comfortable and appropriately groomed.MSE completed.See report.Ms Walker is at her baseline.She is stable.Discharged today 01/25/17 to case address.Discussed with the Multidisciplinary treatment team. Total face to face time:: 40 Mental Status Exam - Mental Status Exam Alert and Oriented to: Time, Place, Person Cognitive Function: Good Patient Appearance: Well Groomed Mood: Hopeful, Euthymic Affect: Appropriate, Normal Range Patient Behavior: Appropriate, Cooperative Speech Pattern: Clear, Appropriate Voice Loudness: Normal Thought Process: Intact, Goal Oriented Thought Disorder: Not Present Hallucinations: Denies Suicidal Ideation: Denies Homicidal Ideation: Denies Insight/Judgement: Good Sleep: Fair Muscle strength/Tone: Normal Gait/Station: Normal Psychiatric Treatment Plan - Problem List (1) MDD (major depressive disorder), recurrent episode Current Visit: Yes Comment: . (2) Alcohol dependence Current Visit: Yes Comment: . (3) Nicotine dependence Current Visit: Yes Qualifiers: Nicotine product type: cigarettes Substance use status: uncomplicated Qualified Code(s): F17.210 - Nicotine dependence, cigarettes, uncomplicated Comment: . (4) Anemia Current Visit: Yes Comment: . (5) GERD (gastroesophageal reflux disease) Current Visit: Yes Comment: . (6) Cirrhosis of liver Current Visit: Yes Qualifiers: Hepatic cirrhosis type: unspecified hepatic cirrhosis Ascites presence : without ascites Qualified Code(s): K74.60 - Unspecified cirrhosis of liver Comment: . (7) Hypothyroidism Current Visit: Yes Qualifiers: Hypothyroidism type: unspecified Qualified Code(s): E03.9 - Hypothyroidism, unspecified Comment: . (8) Gallstones Current Visit: Yes (9) Insomnia Current Visit: Yes Comment: .
== END 2017-01-25 10:38 | disposition home or self-care (01) | DRG 772 ==
LOC: YASAS 15:00 → Y3W 15:02
PROVIDERS: ADMIT Psychiatry & Neurology Psychiatry; ATTEND Psychiatry & Neurology Psychiatry
PROC: HZ42ZZZ Group Counseling for Substance Abuse Treatment, Cognitive-Behavioral (ICD-10-PCS; principal; 2017-01-05)
DX: F10.20 Alcohol dependence, uncomplicated (principal); F17.210 Nicotine dependence, cigarettes, uncomplicated; F19.24 Other psychoactive substance dependence with psychoactive substance-induced mood disorder; F33.9 Major depressive disorder, recurrent, unspecified; D64.9 Anemia, unspecified; K21.9 Gastro-esophageal reflux disease without esophagitis; K74.60 Unspecified cirrhosis of liver; E03.9 Hypothyroidism, unspecified; G47.00 Insomnia, unspecified; Z86.69 Personal history of other diseases of the nervous system and sense organs; Z87.19 Personal history of other diseases of the digestive system
CPT/HCPCS: 72100-TC